=== PATIENT | female | born 1995 | race American Indian/Alaskan Native ===

== ENCOUNTER 2020-05-27 17:29 | Emergency (ER) | payer MEDICAID ==
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
[2020-05-27] MEDS ORDERED: IBUPROFEN 600 MG TAB PO ONE (19:47)
[2020-05-27] MEDS ORDERED: ACETAMINOPHEN 500 MG TAB PO ONE (19:47)
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
[2020-05-27 21:37] VITALS: BP 120/75
== END 2020-05-27 21:26 | disposition home or self-care (01) ==
LOC: ED 17:29
DX: S00.83XA Contusion of other part of head, initial encounter (principal); S09.302A Unspecified injury of left middle and inner ear, initial encounter; Z79.1 Long term (current) use of non-steroidal anti-inflammatories (NSAID); Z79.2 Long term (current) use of antibiotics; Z79.899 Other long term (current) drug therapy; Y04.2XXA Assault by strike against or bumped into by another person, initial encounter; Y93.89 Activity, other specified; Y92.009 Unspecified place in unspecified non-institutional (private) residence as the place of occurrence of the external cause; Y99.8 Other external cause status
CPT/HCPCS: 70450; 70486